=== PATIENT | female | born 1970 | race Caucasian/White ===

== ENCOUNTER 2018-08-03 10:37 | Emergency (ER) | payer BC ==
[2018-08-03 10:50] VITALS: BP 111/72
--- NOTE | 2018-08-03 10:54 | UC ---
Back Pain HPI - HPI Summary HPI Summary: 48 yo female presents with right sided low back pain. She tells me that about 1 week ago she woke up and noticed pain to her right lower back. She had trouble getting out of bed and needed the assistance of her daughter. She denies known injury. She has been taking tylenol and ibuprofen with no relief. She had one instant of urinary incontinence and notes that she has been having more bowel movements lately, but no loss of bowel control. She also notes that her right leg feels weak and has felt that it is going to "give out". She denies numbness , tingling, or radiation of pain. No fever, chills, abdominal pain, n/v, or dysuria. She says that she has a history of minor low back problems and had an MRI about 8 years ago that showed a mild bulging disk. - History of Current Complaint Chief Complaint: UCBackPain Stated Complaint: BACK PAIN Time Seen by Provider: 08/03/18 10:53 Hx Obtained From: Patient Hx Last Menstrual Period: iud Onset/Duration: Sudden Onset Timing: Constant Severity Initially: Moderate Severity Currently: Moderate Pain Intensity: 5 Pain Scale Used: 0-10 Numeric - Allergies/Home Medications Allergies/Adverse Reactions: Allergies Allergy/AdvReac Type Severity Reaction Status Date / Time scopolamine Allergy See Comment Verified 08/03/18 10:51 Home Medications: Home Medications Acetaminophen [APAP] 650 mg PO 08/03/18 [History] Ibuprofen 800 mg PO 08/03/18 [History] PMH/Surg Hx/FS Hx/Imm Hx - Additional Past Medical History Additional PMH: None - Surgical History Surgical History: Yes Surgery Procedure, Year, and Place: [place] [facility] [place] [facility] [place] - Family History Known Family History: Positive: None - Social History Occupation: Employed Full-time Lives: With Family Alcohol Use: Occasionally Alcohol Amount: 10 WINE OR BEER PER MONTH Substance Use Type: None Smoking Status (MU): Former Smoker Type: Cigarettes Amount Used/How Often: 1/2 PPD FOR 30 YEARS Length of Time of Smoking/Using Tobacco: 20 years Have You Smoked in the Last Year: Yes Household Exposure Type: Cigarettes Review of Systems All Other Systems Reviewed And Are Negative: Yes Constitutional: Positive: Negative Skin: Positive: Negative Respiratory: Positive: Negative Cardiovascular: Positive: Negative Gastrointestinal: Positive: Negative Genitourinary: Positive: Negative Neurovascular: Positive: Negative Musculoskeletal: Positive: Other: - Right low back pain Neurological: Positive: Weakness - right leg Psychological: Positive: Negative Physical Exam - Summary Physical Exam Summary: GENERAL: NAD. WDWN. No pain distress. SKIN: No rashes, sores, lesions, or open wounds. NECK: Supple. FROM. Nontender. No lymphadenopathy. CHEST: CTAB. No r/r/w. No accessory muscle use. Breathing comfortably and in no distress. CV: RRR. Without m/r/g. Pulses intact. Cap refill <2seconds MSK: NTTP over lumbar paraspinal muscles or lumbar vetebrae. Pain with flexion and extension of spine. Positive SLR on right for low back pain without radiation. Strength 5/5 B/L LEs including dorsiflexion and plantar flexion. FROM B/L LEs. No edema. NEURO: Alert. Sensations intact B/L LEs L3-S1, but feel decreased on right compared to left. PSYCH: Age appropriate behavior. Triage Information Reviewed: Yes Vital Signs: Initial Vital Signs Temp 97.4 F 08/03/18 10:44 Pulse 69 08/03/18 10:44 Resp 18 08/03/18 10:44 BP 111/72 08/03/18 10:44 Pulse Ox 99 08/03/18 10:44 Laboratory Tests 08/03/18 11:20 POC Urine Color Yellow POC Urine Clarity Clear POC Urine pH 5.0 POC Ur Specif Dellrose 1.025 POC Urine Protein Negative POC Ur Glucose (UA) Negative POC Urine Ketones Negative POC Urine Blood Negative POC Urine Nitrite Negative POC Urine Bilirubin Negative POC Urine Urobilinogen 0.2 POC U Leukocyte Esteras Negative Vital Signs Reviewed: Yes Back Pain Course/Dx - Course Course Of Treatment: CT lumbar spine: IMPRESSION: MILD DEGENERATIVE DISC DISEASE, WITHOUT OSSEOUS NEURAL FORAMINAL NARROWING OR CENTRAL. CANAL STENOSIS. We discussed the importance of rectal tone and the important clinical information a rectal exam would provide, but pt declined exam. She is having no numbness or paresthesias and her strength is intact. Will treat her pain as sciatica and have her f/u with her PCP or neurosurgery for further evaluation and possible PT/MRI of her lower back. Advised that if she develops numbness, tingling, or loss of bowel/bladder control to go to the ED. - Differential Dx/Diagnosis Provider Diagnosis: Low back pain, Sciatica Discharge - Sign-Out/Discharge Documenting (check all that apply): Patient Departure All imaging exams completed and their final reports reviewed: Yes - Discharge Plan Condition: Stable Disposition: HOME Prescriptions: Cyclobenzaprine TAB* [Flexeril 10 MG TAB*] 10 mg PO BID PRN #20 tab PRN Reason: Pain predniSONE TAB* [Deltasone 20 MG TAB*] 60 mg PO DAILY #18 tab Patient Education Materials: Sciatica (ED) Referrals: Miriam Childers MD [Primary Care Provider] - As Soon As Possible Belen Hernandez MD [Medical Doctor] - As Soon As Possible [facility] [Provider Group] - As Soon As Possible Additional Instructions: If you develop a fever, shortness of breath, chest pain, new or worsening symptoms - please call your PCP or go to the ED. 1) If you develop numbness, tingling, or decreased sensation/function of your leg or groin area - please go to the ER immediately - Billing Disposition and Condition Condition: STABLE Disposition: Home
== END 2018-08-03 12:00 | disposition home or self-care (01) ==
LOC: UCEAST 10:37
DX: M54.41 Lumbago with sciatica, right side (principal); F17.210 Nicotine dependence, cigarettes, uncomplicated; R32 Unspecified urinary incontinence; R53.1 Weakness
CPT/HCPCS: 72131; 81003; 99212; G0463

== ENCOUNTER 2019-03-16 11:20 | Emergency (ER) | payer BC ==
--- OUTSIDE RECORDS SUMMARY | 2019-03-16 11:26 | XMS REPORT ---
:1970 Author Organization [facility] Address [address] [place] [address] Care Team Providers Name Role Phone Arabella Robles Unavailable Unavailable PROBLEMS Type Condition ICD9-CM Code [id number] Code Onset Condition SNOMED Code Dates Status Problem Acute vaginitis N76.0 Active 94805914 Problem Excessive and N92.0 Active 864596182 frequent menstruation with regular cycle Problem Dysplasia of N90.3 Active 716922218 vulva, unspecified Problem Family history of Z80.3 Active 076317114 malignant neoplasm of breast ALLERGIES No Information ENCOUNTERS Encounter Location Date Diagnosis [facility] [address] Mar, OBGYN [place] [id number] [facility] [address] Mar, [place] [id number] [facility] 103 Jan, [place] [id number] [facility] [address] Jan, OBGYN [place] [id number] [facility] [address] Jan, Dysplasia of vulva, OBGYN [facility], unspecified N90.3 ; [place] [id number] Excessive and frequent menstruation with regular cycle N92.0 and Other specified noninflammatory disorders of vagina N89.[address] [facility] 103 Jul, [place] [id number] [place] [facility] 103 Jul, [facility] unspecified N90.3 and [place] [id number] Excessive and frequent menstruation with regular cycle N92.0 [place] [facility] 103 Jun, [place] [id number] [place] [facility] 103 Jun, [place] [id number] [place] [facility] [address] May, [place] [id number] [place] [facility] [address] [place] [address] [place] May, Acute vaginitis N76.0 ; [address] [place], Dysplasia of vulva, [place] [id number] unspecified N90.3 ; Family history of malignant neoplasm of breast Z80.3 ; Encounter for other contraceptive management Z30.8 ; Excessive and frequent menstruation with regular cycle N92.0 and Anal spasm K59.4 [place] [facility] 103 Feb, [place] [id number] [place] [facility] 103 Feb, [place] [id number] [place] [facility] [address] [place] Feb, Dysplasia of vulva, [address] [place] [address], unspecified N90.3 ; Family [place] [id number] history of malignant neoplasm of breast Z80.3 ; Encounter for other contraceptive management Z30.8 and Acute vaginitis N76.0 [place] [facility] [address] [place] Jan, Dysplasia of vulva, [address] [place], unspecified N90.3 and [place] [id number] Family history of malignant neoplasm of breast Z80.3 [place] [facility] [address] [place] Dec, Dysplasia of vulva, [address] [place], unspecified N90.3 ; Family [place] [id number] history of malignant neoplasm of breast Z80.3 and Vaginitis, vulvitis and vulvovaginitis in diseases classified elsewhere N77.[address] Nov, Dysplasia of vulva, [facility] [address] [place], unspecified N90.3 [place] [id number] IMMUNIZATIONS No Known Immunizations SOCIAL HISTORY Never Assessed REASON FOR REFERRAL FUNCTIONAL STATUS PLAN OF CARE VITAL SIGNS MEDICATIONS Unknown Medications PROCEDURES No Known procedures RESULTS No Results REASON FOR VISIT [facility] Insurance [facility] Health Member Patient Patient Patient Patient Patient Subscriber Subscriber Subscriber Group Insurance Plan Plan Plan Plan ID Relationship Address Phone Name Date of ID Name Date of No Type Insurance Insurance Insurance Coverage to Subscriber Address Phone Name Dates Blue Cross [phone] Blue Cross self Kitty [id number] Blue [id number] 89 Blue a Beyea Shield [place] [facility] [address] MEDICAL (GENERAL) HISTORY Type Description Date Medical History BRADLY Surgical History appendectomy Surgical History C section 1999 Surgical History plantar faciitis- Right 2016 Surgical History Right index finger- repair 2017 Hospitalization History 1999 Hospitalization History childbirth 2001
--- OUTSIDE RECORDS SUMMARY | 2019-03-16 11:26 | XMS REPORT ---
:1970 Author Organization [facility] Address [address] [place] [address] Care Team Providers Name Role Phone Arabella Robles Unavailable Unavailable PROBLEMS Type Condition ICD9-CM Code [id number] Code Onset Condition SNOMED Code Dates Status Problem Acute vaginitis N76.0 Active 64709190 Problem Excessive and N92.0 Active 949484885 frequent menstruation with regular cycle Problem Dysplasia of N90.3 Active 077443589 vulva, unspecified Problem Family history of Z80.3 Active 731899381 malignant neoplasm of breast ALLERGIES No Information ENCOUNTERS Encounter Location Date Diagnosis [facility] [address] Mar, O[place] [id number] [facility] [address] Mar, [place] [id number] [facility] Jan, [place] [id number] [facility] 103 Jan, [place], [place] [id number] [facility] [address] Jan, Dysplasia of vulva, O[facility], unspecified N90.3 ; [place] [id number] Excessive and frequent menstruation with regular cycle N92.0 and Other specified noninflammatory disorders of vagina N89.8 [facility] 103 Jul, [place] [id number] [place] [facility] [address] Jul, [facility], [facility] unspecified N90.3 and [place] [id number] Excessive and frequent menstruation with regular cycle N92.0 [place] [facility] 103 Jun, [place] [id number] [place] [facility] 103 Jun, [place] [id number] [place] [facility] 103 May, [place] [id number] [place] [facility] [address] [place] [address] [place] May, Acute vaginitis N76.0 ; [address] [place], Dysplasia of vulva, [place] [id number] unspecified N90.3 ; Family history of malignant neoplasm of breast Z80.3 ; Encounter for other contraceptive management Z30.8 ; Excessive and frequent menstruation with regular cycle N92.0 and Anal spasm K59.4 [place] [facility] [address] Feb, [place] [id number] [place] [facility] [address] Feb, [place] [address] [place] [facility] [address] [place] Feb, Dysplasia of vulva, [address] [place] [address], unspecified N90.3 ; Family [place] [id number] history of malignant neoplasm of breast Z80.3 ; Encounter for other contraceptive management Z30.8 and Acute vaginitis N76.0 [place] [facility] [address] [place] Jan, Dysplasia of vulva, [address] [place], unspecified N90.3 and [place] [id number] Family history of malignant neoplasm of breast Z80.3 [place] [facility] [address] [place] Dec, Dysplasia of vulva, [address] [place], unspecified N90.3 ; Family [place] [id number] history of malignant neoplasm of breast Z80.3 and Vaginitis, vulvitis and vulvovaginitis in diseases classified elsewhere N77.[address] Nov, Dysplasia of vulva, [facility] [address] [place], unspecified N90.3 [place] [id number] IMMUNIZATIONS No Known Immunizations SOCIAL HISTORY Never Assessed REASON FOR REFERRAL FUNCTIONAL STATUS PLAN OF CARE VITAL SIGNS MEDICATIONS Medication Instructions Dosage Frequency Start End Date Duration Status Date Mirena 52 mg by intrauterine 1 ea Active administration once Flagyl 500 mg orally BID 1 tab(s) 12h Jan, 7 day(s) Active 2019 MetroGel-Vagina intravaginally 1 appful Jan, 5 day(s) Active l 0.75% once a day (at 2018 bedtime) PROCEDURES No Known procedures RESULTS No Results REASON FOR VISIT Pt script. Insurance Providers [facility] Health Member Patient Patient Patient Patient Patient Subscriber Subscriber Subscriber Group Insurance Plan Plan Plan Plan ID Relationship Address Phone Name Date of ID Name Date of No Type Insurance Insurance Insurance Coverage to Subscriber Address Phone Name Dates Blue Cross [phone] Blue Cross self Kitty [id number] Blue [id number] 89 Blue a Beyea 8 Shield [place] [facility] [address] [address] MEDICAL (GENERAL) HISTORY Type Description Date Medical History BRADLY Surgical History appendectomy Surgical History C section 1999 Surgical History plantar faciitis- Right 2016 Surgical History Right index finger- repair 2017 Hospitalization History 1999 Hospitalization History childbirth 2001
--- OUTSIDE RECORDS SUMMARY | 2019-03-16 11:26 | XMS REPORT ---
:1970 Author Organization [facility] Address [address] [place] [address] Care Team Providers Name Role Phone Arabella Robles Unavailable Unavailable PROBLEMS Type Condition ICD9-CM Code [id number] Code Onset Condition SNOMED Code Dates Status Problem Acute vaginitis N76.0 Active 87826613 Problem Excessive and N92.0 Active 664248723 frequent menstruation with regular cycle Problem Dysplasia of N90.3 Active 201764021 vulva, unspecified Problem Family history of Z80.3 Active 631418691 malignant neoplasm of breast ALLERGIES No Information ENCOUNTERS Encounter Location Date Diagnosis [facility] [address] Mar, [place], [place] [id number] [facility] Mar, [place] [id number] [facility] 103 Jan, [place] [id number] [facility] [address] Jan, [place] [id number] [facility] [address] Jan, Dysplasia of vulva, O[facility], unspecified N90.3 ; [place] [id number] Excessive and frequent menstruation with regular cycle N92.0 and Other specified noninflammatory disorders of vagina N89.8 [facility] 103 Jul, [place] [address] [place] [facility] 103 Jul, [facility]plasia of vulva, [facility], unspecified N90.3 and [place] [id number] Excessive and frequent menstruation with regular cycle N92.0 [place] [facility] 103 Jun, [place] [address] [place] [facility] 103 Jun, [place] [id number] [facility] [facility] 103 May, [place] [address] [place] [facility] [address] [place] [address] [place] May, Acute vaginitis N76.0 ; [address] [place], Dysplasia of vulva, [place] [id number] unspecified N90.3 ; Family history of malignant neoplasm of breast Z80.3 ; Encounter for other contraceptive management Z30.8 ; Excessive and frequent menstruation with regular cycle N92.0 and Anal spasm K59.4 [place] [facility] 103 Feb, [place] [id number] [place] [facility] 103 Feb, [place] [address] [place] [facility] [address] [place] Feb, Dysplasia of vulva, O[address] [place] [address], unspecified N90.3 ; Family [place] [id number] history of malignant neoplasm of breast Z80.3 ; Encounter for other contraceptive management Z30.8 and Acute vaginitis N76.0 [place] [facility] [address] [place] Jan, Dysplasia of vulva, O[address] [place], unspecified N90.3 and [place] [id number] Family history of malignant neoplasm of breast Z80.3 [place] [facility] [address] [place] Dec, Dysplasia of vulva, O[address] [place], unspecified N90.3 ; Family [place] [id number] history of malignant neoplasm of breast Z80.3 and Vaginitis, vulvitis and vulvovaginitis in diseases classified elsewhere N77.[address] Nov, Dysplasia of vulva, [facility] [address] [place], unspecified N90.3 [place] [id number] IMMUNIZATIONS No Known Immunizations SOCIAL HISTORY Never Assessed REASON FOR REFERRAL FUNCTIONAL STATUS PLAN OF CARE VITAL SIGNS MEDICATIONS Medication Instructions Dosage Frequency Start End Date Duration Status Date MetroGel-Vagina intravaginally 1 appful Jan, day(s) Active l 0.75% once a day (at 2018 bedtime) Mirena 52 mg by intrauterine 1 ea Active administration once PROCEDURES No Known procedures RESULTS No Results REASON FOR VISIT Insurance Providers [facility] Health Member Patient Patient Patient Patient Patient Subscriber Subscriber Subscriber Group Insurance Plan Plan Plan Plan ID Relationship Address Phone Name Date of ID Name Date of No Type Insurance Insurance Insurance Coverage to Subscriber Address Phone Name Dates Blue Cross [phone] Blue Cross self Kitty [id number] [place] [id number] 89 Blue a Beyea Shield [facility] [address] MEDICAL (GENERAL) HISTORY Type Description Date Medical History BRADLY Surgical History appendectomy Surgical History C section 1999 Surgical History plantar faciitis- Right 2016 Surgical History Right index finger- repair 2017 Hospitalization History 2000 Hospitalization History childbirth 2002
--- OUTSIDE RECORDS SUMMARY | 2019-03-16 11:26 | XMS REPORT ---
:1970 Author Organization [facility] Address [address] [place] [address] Care Team Providers Name Role Phone Arabella Robles Unavailable Unavailable PROBLEMS Type Condition ICD9-CM Code [id number] Code Onset Condition SNOMED Code Dates Status Problem Acute vaginitis N76.0 Active 73909416 Problem Excessive and N92.0 Active 483617660 frequent menstruation with regular cycle Problem Dysplasia of N90.3 Active 651639870 vulva, unspecified Problem Family history of Z80.3 Active 525192348 malignant neoplasm of breast ALLERGIES No Information ENCOUNTERS Encounter Location Date Diagnosis [facility] [address] Mar, OBGYN [place], [place] [id number] [facility] 103 Mar, [place] [id number] [facility] 103 Feb, [place] [address] [facility] 103 Jan, [place] [id number] [facility] [address] Jan, [place] [id number] [facility] [address] Jan, Dysplasia of vulva, OBGYN [facility], unspecified N90.3 ; [place] [address] Excessive and frequent menstruation with regular cycle N92.0 and Other specified noninflammatory disorders of vagina N89.8 [place] [facility] 103 Jul, OBGYN [place], [place] [address] [place] [facility] 103 Jul, Dysplasia of vulva, OBGYN [facility], unspecified N90.3 and [place] [id number] Excessive and frequent menstruation with regular cycle N92.0 [place] [facility] 103 Jun, [place] [address] [facility] 103 Jun, [place] [address] [place] [facility] 103 May, [place] [address] [facility] May, Acute vaginitis N76.0 ; [facility] [address] [place], Dysplasia of vulva, [place] [address] unspecified N90.3 ; Family history of malignant neoplasm of breast Z80.3 ; Encounter for other contraceptive management Z30.8 ; Excessive and frequent menstruation with regular cycle N92.0 and Anal spasm K59.4 [place] [facility] 103 17 Feb, 2018 [place] [address] [place] [facility] 103 Feb, [place] [address] [facility] Feb, Dysplasia of vulva, [facility] [address] [place], unspecified N90.3 ; Family [place] [id number] history of malignant neoplasm of breast Z80.3 ; Encounter for other contraceptive management Z30.8 and Acute vaginitis N76.[address] [place] [address] Jan, Dysplasia of vulva, [facility] [address] [place], unspecified N90.3 and [place] [id number] Family history of malignant neoplasm of breast Z80.[address] [facility] [address] Dec, Dysplasia of vulva, O[address] [place], unspecified N90.3 ; Family [place] [id number] history of malignant neoplasm of breast Z80.3 and Vaginitis, vulvitis and vulvovaginitis in diseases classified elsewhere N77.[address] Nov, Dysplasia of vulva, O[address] [place], unspecified N90.3 [place] [id number] IMMUNIZATIONS No Known Immunizations SOCIAL HISTORY Never Assessed REASON FOR REFERRAL FUNCTIONAL STATUS PLAN OF CARE VITAL SIGNS MEDICATIONS Medication Instructions Dosage Frequency Start End Date Duration Status Date MetroGel-Vagin intravaginally 1 appful Jan, 5 day(s) Active al 0.75% once a day (at 2019 bedtime) Flagyl 500 mg orally BID 1 tab(s) 12h Jan, 7 day(s) Active 2019 Diflucan 150 orally once 1 tab(s) 17 Feb, 1 dose(s) Active mg 2018 Mirena 52 mg by intrauterine 1 ea Active administration once PROCEDURES No Known procedures RESULTS No Results REASON FOR VISIT pt script Insurance Providers [facility] Health Member Patient Patient Patient Patient Patient Subscriber Subscriber Subscriber Group Insurance Plan Plan Plan Plan ID Relationship Address Phone Name Date of ID Name Date of No Type Insurance Insurance Insurance Coverage to Subscriber Address Phone Name Dates Blue Cross [phone] Blue Cross self Kitty [id number] [place] [id number] 89 Blue a [place]ye[place] [address] [place] [address] MEDICAL (GENERAL) HISTORY Type Description Date Medical History BRADLY Surgical History appendectomy Surgical History C section 1999 Surgical History plantar faciitis- Right 2016 Surgical History Right index finger- repair 2017 Hospitalization History 1999 Hospitalization History childbirth 2001
[2019-03-16 11:38] VITALS: BP 116/83
--- NOTE | 2019-03-16 11:53 | UC ---
Throat Pain/Nasal Enrique HPI - HPI Summary HPI Summary: 49-year-old female comes in with a chief complaint of upper respiratory tract infection symptoms with sore throat for 1 week. She's used some Cepacol lozenges which helped some with the pain. She's also been taken ibuprofen but she does have GERD and that upsets her stomach. She is has minimal rhinorrhea. She has bilateral ear pressure. Throat hurts worse when she swallows. Started with a fever yesterday. Feels like she is getting worse rather than better. No wheezing. She is a former smoker she quit in June 2018. - History of Current Complaint Chief Complaint: UCGeneralIllness Stated Complaint: SORE THROAT Time Seen by Provider: 03/16/19 11:42 Hx Last Menstrual Period: IUD Pain Intensity: 4 - Allergies/Home Medications Allergies/Adverse Reactions: Allergies Allergy/AdvReac Type Severity Reaction Status Date / Time scopolamine Allergy See Comment Verified 08/03/18 10:51 PMH/Surg Hx/FS Hx/Imm Hx Previously Healthy: Yes GI/ History: Gastroesophageal Reflux - Surgical History Surgical History: Yes Surgery Procedure, Year, and Place: 1997 APPEN[place]CTOM[place], [facility] [place] , [facility] [place]. 12/16/2015 [facility] - Family History Known Family History: Positive: None Family History: NON CONTRIBUTORY - Social History Alcohol Use: Occasionally Alcohol Amount: 10 WINE OR BEER PER MONTH Substance Use Type: None Smoking Status (MU): Former Smoker Type: Cigarettes Amount Used/How Often: 1/2 PPD FOR 30 YEARS Length of Time of Smoking/Using Tobacco: 20 years Have You Smoked in the Last Year: Yes Household Exposure Type: Cigarettes Review of Systems All Other Systems Reviewed And Are Negative: Yes Constitutional: Positive: Fever, Other - SEE HPI Skin: Positive: Negative Eyes: Positive: Negative ENT: Positive: Sore Throat, Ear Ache, Nasal Discharge Respiratory: Positive: Negative Cardiovascular: Positive: Negative Gastrointestinal: Positive: Negative Motor: Positive: Negative Neurovascular: Positive: Negative Musculoskeletal: Positive: Negative Neurological: Positive: Headache Psychological: Positive: Negative Is Patient Immunocompromised?: No Physical Exam Triage Information Reviewed: Yes Appearance: No Pain Distress, Well-Nourished, Ill-Appearing - MILD Vital Signs: Initial Vital Signs Temp 99.2 F 03/16/19 11:33 Pulse 66 03/16/19 11:33 Resp 16 03/16/19 11:33 BP 116/83 03/16/19 11:33 Pulse Ox 100 03/16/19 11:33 Vital Signs Reviewed: Yes Eye Exam: Normal Eyes: Positive: Conjunctiva Clear ENT: Positive: Pharyngeal erythema, Nasal congestion, Nasal drainage, TMs normal Neck: Positive: Supple Respiratory: Positive: Lungs clear, Normal breath sounds, No respiratory distress Cardiovascular: Positive: RRR Musculoskeletal: Positive: Strength Intact, ROM Intact Neurological: Positive: Alert, Muscle Tone Normal Psychological: Positive: Age Appropriate Behavior Skin Exam: Normal Throat Pain/Nasal Course/Dx - Course Course Of Treatment: DISCUSSED VIRAL VERSES BACTERIAL INFECTIONS AND THE ROLE OF ANTIBIOTICS. THE PATIENT PREFERS TO BE ON ANTIBIOTICS AT THIS TIME. - Differential Dx/Diagnosis Provider Diagnosis: Upper respiratory infection, Pharyngitis Discharge ED - Sign-Out/Discharge Documenting (check all that apply): Patient Departure All imaging exams completed and their final reports reviewed: No Studies - Discharge Plan Condition: Stable Disposition: HOME Prescriptions: Amoxicillin PO (*) [Amoxicillin 875 MG (*)] 875 mg PO BID #20 tab Patient Education Materials: Pharyngitis (ED), Upper Respiratory Infection (ED) Referrals: [facility] [place] [Outside] Additional Instructions: FOLLOW UP WITH YOUR DOCTOR IF NOT COMPLETELY IMPROVED. GET RECHECKED SOONER IF YOUR CONDITION WORSENS OR ANY QUESTIONS OR CONCERNS. - Billing Disposition and Condition Condition: STABLE Disposition: Home
== END 2019-03-16 11:59 | disposition home or self-care (01) ==
LOC: UCEAST 11:20
DX: J02.9 Acute pharyngitis, unspecified (principal); K21.9 Gastro-esophageal reflux disease without esophagitis; Z87.891 Personal history of nicotine dependence; Z88.8 Allergy status to other drugs, medicaments and biological substances
CPT/HCPCS: 99211; G0463

== ENCOUNTER 2019-06-01 09:39 | Emergency (ER) | payer BC ==
--- OUTSIDE RECORDS SUMMARY | 2019-06-01 09:48 | XMS REPORT | Summary of Care ---
:1970 Author Organization [facility] Address [address] [address] Care Team Providers Name Role Phone Shawna Brian MD Primary Care Provider Reason for Visit Reason Comments Knee Pain right Encounter Details Date Type Department Care Team Description 05/27/2019 Office Visit [facility] - Pebbles Malone, Acute medial meniscus [place] [facility] tear of right knee, Therapy [address] subsequent encounter [address] [place] [address] (Primary Dx) [address] [phone] [place] [id number] [phone] Allergies Active Allergy Reactions Severity Noted Date Comments Varenicline Other 07/04/2014 Nightmares Scopolamine 07/18/2007 documented as of this encounter (statuses as of 05/27/2019) Medications Medication Sig Dispensed Refills Start Date End Date Status Levonorgestrel by Intrauterine 0 Active (MIRENA, 52 MG,) 20 route. Placed MCG/24HR Intrauterine 12/25/15 IUD acetaminophen Take 1 Tab by mouth 36 Tab 0 04/14/2017 Active (TYLENOL) 650 MG Oral EVERY SIX HOURS. Tab CR ibuprofen (MOTRIN) Take 1 Tab by mouth 36 Tab 0 04/14/2017 Active 800 MG Oral Tab EVERY SIX HOURS NEEDED for Pain. metroNIDAZOLE insert 1 applicator 0 08/28/2017 Active (METROGEL VAGINAL) per vagina two 0.75 % Vaginal Gel times of week for suppressive therapy documented as of this encounter (statuses as of 05/27/2019) Active Problems Problem Noted Date Pain of right upper extremity 03/17/2017 Overview: Added automatically from request for surgery [id number] IUD (intrauterine device) in place 03/02/2016 Overview: mirena - December 18 BMI 33.0-33.9,adult 03/02/2016 Left wrist pain 03/13/2015 Impingement syndrome of right shoulder 03/13/2015 Ganglion of left wrist 03/13/2015 Shoulder pain, right 10/23/2014 Smoking 07/04/2014 Overview: Care plan done 06/19 Depressive disorder, not elsewhere classified 12/04/2006 Acute sinusitis, unspecified 10/18/2006 Tobacco use disorder 10/18/2006 Irritable bowel syndrome 10/18/2006 Abnormal glandular Papanicolaou smear of cervix 06/29/2006 documented as of this encounter (statuses as of 05/27/2019) Immunizations Name Administration Dates Next Due Influenza (IM) Preservative Free 05/30/2017, 03/02/2016, 03/26/2015 Influenza (IM) W/Pres 07/04/2014 TDAP Vaccine 07/04/2014 documented as of this encounter Social History Tobacco Use Types Packs/Day Years Used Date Current Every Day Smoker Cigarettes 0.5 20 Smokeless Tobacco: Never Used Alcohol Use Drinks/Week oz/Week Comments Yes 10 Standard drinks or equivalent 8.3 very rare Sex Assigned at Date Recorded Not on file Job Start Date Occupation Industry Not on file Not on file Not on file Travel History Travel Start Travel End No recent travel history available. documented as of this encounter Last Filed Vital Signs Not on filedocumented in this encounter Progress Notes Pebbles Malone, PT - 05/27/2019 2:30 PM EST [facility] Treatment Note Outpatient Physical Therapy Services [facility] [address] [place] [phone] Treatment Number: 5 Referring Physician: Lizabeth Perez Primary Diagnosis: ICD-9-CM ICD-10-CM 1. Acute medial meniscus tear of right knee, subsequent encounter V58.89 S83.241D 836.0 Plan of Care Expiration Date: Time In: 234 Time Out: 304 Total Session Minutes: 30 Pain at Start of Care: 0/10 Pain at End of Care: 0/10 Subjective Comments: Doing better, still pain with twisting/pivoting. Interventions: Therapeutic Exercises (44149) Patient Education/Home Exercise Program: see exercises below Number of Exercises?: 8 Total Minutes (all Therapeutic Exercise): 25 Exercise #1 Exercise Name: Side lying clams with blue band Reason for Exercise: Muscle Performance Location/Body Area: Hip Sets/Reps: 15x Exercise #2 Exercise Name: Hamstring stretch with strap Reason for Exercise: Flexibility Location/Body Area: Ankle Sets/Reps: 60 sec Exercise #3 Exercise Name: SLS on airex Reason for Exercise: Balance Location/Body Area: Knee Sets/Reps: 3 x 30 sec Exercise #4 Exercise Name: bridge with blue band Reason for Exercise: Muscle Performance Location/Body Area: Knee Sets/Reps: 15x Exercise #5 Exercise Name: Bridge on SB Reason for Exercise: Strengthening Location/Body Area: Knee Sets/Reps: 15 Exercise #6 Exercise Name: Side stepping with resistance Reason for Exercise: Strengthening Location/Body Area: Hip Sets/Reps: 3 laps blue Exercise #7 Exercise Name: step ups Reason for Exercise: Strengthening Location/Body Area: Knee Sets/Reps: 15x 4" Manual Therapy (81289) Taping: kinesiotape Taping Details: Y strip and I strip Modalities Modalities Needed?: Ultrasound Ultrasound (10667) Reason for Use: promote healing, cavitation Body Area: medial knee joint Frequency: 1.0 MHz Frequency Description: Pulsed 50% Intensity: .5wcm2 Total Minutes: 5 minutes Assessment: Patient demonstrates mild pain at first with lateral step ups which became pain free, otherwise progressing well. Patient also reports ongoing difficulty in lateral and pivoting movements. Skilled Physical Therapy services are required to address ongoing functional and objective limitations/ impairments including decreased R LE stability, short hamstrings. Plan for Next Visit: Progress quad and glute strengthening Total UNTIMED Code Treatment Minutes: Total TIMED Code Treatment Minutes: 30 Total Treatment Minutes: 30 Author: Pebbles Malone PT 05/27/2019 14:59 documented in this encounter Plan of Treatment Date Type Specialty Care Team Description 06/03/2019 Office Visit Physical Therapy Pebbles Malone, PT [address] [place] [address] [phone] 08/27/2019 Office Visit Orthopedics Mccracken, Lizabeth L, [facility]CHE[facility]-C [address] [place] [address] [phone] Health Maintenance Due Date Last Done Comments PNEUMOCOCCAL 0-64 YRS (1 of 1977 1 - PPSV23) DEPRESSION SCREENING 1983 DIABETES SCREENING 10/11/2017 10/11/2016, 07/04/2014 INFLUENZA VACCINE (#1) 2019 05/30/2017, 03/02/2016, 03/26/2015, Additional history exists PAP SMEAR 03/02/2019 03/02/2016, 03/02/2016, 07/04/2014, Additional history exists LIPID DISORDER SCREENING 06/03/2022 06/03/2017, 07/04/2014, 04/06/2011, Additional history exists DTaP/Tdap/Td Vaccines (2 - 07/04/2024 07/04/2014 Tdap) HEPATITIS A IMMUNIZATION Aged Out No longer eligible SERIES based on patient's age to complete this topic HPV IMMUNIZATION SERIES Aged Out No longer eligible based on patient's age to complete this topic MENINGOCOCCAL VACCINE IMM Aged Out No longer eligible based on patient's age to complete this topic documented as of this encounter Goals Goal Patient Goal Associated Recent Patient-Stated? Author Type Problems Progress Depression Depression No sana Childers (PHQ-9) MD Miriam total score < 5 Note: This is an individualized treatment (depression) goal for Sagrario Buckley: Displayed above is your goal for a depression screening (PHQ-9) score that would indicate good control of your depression. Lifestyle - Current Smoker Lifestyle Tobacco use disorder No Miriam Childers MD Note: Smoking Cessation Plan Discussed smoking cessation with patient. Patient readiness to quit:yes Discussed smoking cessation plan according to AHRQ guidelines:counseled patient on the risks of tobacco use, advised patient to quit and offered support , discussed current use pattern, discussed possibl e barriers (withdrawal symptoms, weight gain, fear of failure, etc.), advised regarding importance of setting quit date and discussed use of medication: Bupropion SR My Quit Plan: My quit date is set for Patient will consider Notify my friends, family, and co-workers about decision to quit. Will ask for their support and understanding Remove tobacco products from my environment. I will ask people not to smoke around me or in my home. I will anticipate challenges at the beginning and will try not to be discouraged. To remember the benefits of quitting such as improved health, feeling better about myself, saving money, etc. Reducing stressors and avoiding triggers are essential keys to my success Finding ways to distract myself when I have the urge to smoke such as taking a walk, reading, playing a board game, putting together a puzzle, etc. Taking medications as my healthcare provider has advised to help alleviate the urge to smoke. If I am unable to take the medication, I will discuss further with my healthcare provider. Recognize reasons for relapse in my past attempts. What did and did not work for me Consider connecting with group, individual, or telephone counseling Keep a regular sleep schedule Lifestyle Miriam Medeiros MD Note: This is an individualized lifestyle goal for Sagrario Buckley: Please maintain a regular sleep schedule. This may help with some symptoms of depression. Take all prescribed medications as directed Self-management Miriam Medeiros MD Note: This is an individualized self-management goal for Sagrario Ely Buckley: Please take all prescribed medications as directed. 1. Do not skip doses. If you cannot afford your medications, talk with your doctor. 2. Use a pill reminder system such as a pill box if needed. Your pharmacist can help you with this. 3. Contact your Pharmacy 5 days before your medication runs out. If you cannot take your medications for any reasons, talk with your doctor. 4. Please bring all of your medication bottles and inhalers (or a list of all your medications/inhalers) with you to every visit. Potential barriers to meeting all of your care plan goals will continue to be addressed on an ongoing basis. documented as of this encounter Implants Implanted Type Area Manager Managing Device Shelf Model / Identifier Expiration Serial / Lot Date Hand/Wrist Internal Brace Ligament Augmentation Repair Right: ARTHREX [id number] / Implanted: Qty: 1 on 04/14/2017 by Delilah Dash MD at [facility] Hand / [id number] documented as of this encounter Results Not on filedocumented in this encounter Visit Diagnoses Diagnosis Acute medial meniscus tear of right knee, subsequent encounter documented in this encounter Insurance Payer Benefit Plan / Subscriber ID Effective Dates Phone Address Type Group [employer] EVELYN BCBS xxxxxxxxxxxx 2016-Present [employer] Guarantor Name Account Type Relation to Date of Phone Billing Patient Address WaynegtSagrario A Personal/Family 1970 [phone] [address] (Home) [phone] [place], [place] (Work) [id number] documented as of this encounter
--- OUTSIDE RECORDS SUMMARY | 2019-06-01 09:48 | XMS REPORT | Summary of Care ---
:1970 Author Organization [facility] Address [address] [address] Care Team Providers Name Role Phone Shawna Brian MD Primary Care Provider Reason for Referral Refer to Department Only (Routine) Status Reason Specialty Diagnoses / Referred By Referred To Procedures Contact Contact Authorized Physical Therapy Diagnoses Acute medial meniscus tear of right knee, subsequent encounter Lizabeth Perez RPA-C Orthopaedics - [address] [place] [address] Physical [facility] Therapy [address] [place] [address] [address] Phone: [place], [place] [phone] Fax: Reason for Visit Reason Comments Follow Up MRI results of right knee. MRI in [facility] [place]. Encounter Details Date Type Department Care Team Description 04/11/2019 Office Visit [facility] - Lizabeth Perez, Acute medial meniscus [place] RPA-C tear of right knee, [address] [place] [address] subsequent encounter [address] (Primary Dx) [place] [address] [place] [address] [phone] Allergies Active Allergy Reactions Severity Noted Date Comments Varenicline Other 07/04/2014 Nightmares Scopolamine 07/18/2007 documented as of this encounter (statuses as of 04/11/2019) Medications Medication Sig Dispensed Refills Start Date [...] Gel times of week for suppressive therapy nicotine transdermal Place 1 Patch onto 14 Patch 0 07/02/2018 Active patch-daily skin DAILY. (NICODERM) 21 MG/24HR Transdermal PATCH 24 HRIndications: Smoking nicotine transdermal Place 1 Patch onto 30 Patch 0 07/05/2018 Active patch-daily (NICOTINE skin DAILY. STEP 2) 14 MG/24HR Transdermal PATCH 24 HR documented as of this encounter (statuses as of 04/11/2019) Active Problems Problem Noted Date Pain of right upper extremity 03/17/2017 Overview: Added automatically from request for surgery [id number] IUD (intrauterine device) in place 03/02/2016 Overview: [...] as of this encounter (statuses as of 04/11/2019) Immunizations Name Administration Dates Next Due Depo Medrol (80mg) 03/13/2015, 10/23/2014 Influenza (IM) Preservative Free 05/30/2017, 03/02/2016, 03/26/2015 [...] of this encounter Last Filed Vital Signs Vital Sign Reading Time Taken Comments Blood Pressure 91/64 04/11/2019 2:31 PM EST Pulse 83 04/11/2019 2:31 PM EST Temperature - - Respiratory Rate - - Oxygen Saturation - - Inhaled Oxygen Concentration - - Weight 95.3 kg (210 lb) 04/11/2019 2:31 PM EST Height 165.1 cm (5' 5") 04/11/2019 2:31 PM EST Body Mass Index 34.95 04/11/2019 2:31 PM EST documented in this encounter Progress Notes Lizabeth Perez RPA-C - 04/11/2019 3:30 PM EST Patient: Sagrario Buckley : 1970 Date of Service: 04/11/2019 Chief Complaint Patient presents with Follow Up MRI results of right knee. MRI in [facility] [place]. HPI: Sagrario Buckley is a 49-y.o. female who is here for follow up from a right knee MRI. The patient reports that she is mobilizing with pain rated as 6/ 10 in the knee. Denies fever, chills, constitutional symptoms. Pain is overall similar to last visit and without significant improvement. Physical Exam: Gait: Patient walks unassisted , normal gait. Knee: Range of motion of the right knee demonstrates extension 0, flexion 110 and quadriceps lag of 0. There is not crepitus throughout range of motion. There is pain at extremes of motion. Patienthas tenderness over the medial joint line, tenderness over medial collateral ligament. Neurological: Sensation is intact to the foot. Vascular: Pedal pulse is present. Pedal edema is absent. Skin condition to the foot is unremarkable and intact. Imaging: MRI: Medial meniscus tear, partial mcl tear and bakers cyst. Impression: ICD-9-CM ICD-10-CM 1. Acute medial meniscus tear of right knee, subsequent encounter V58.89 S83.241D REFER TO PHYSICAL THERAPY / REHAB 836.0 Plan: The diagnosis was discussed with the patient. Will refer to physical therapy. Recheck in 4 weeks . Author: STEPHANIE Sierra 04/11/2019 14:49 documented in this encounter Plan of Treatment Date Type Specialty Care Team Description 04/15/2019 Ancillary Procedure Radiology 04/15/2019 Office Visit Orthopedics Lizabeth Perez RPA-C [address] [facility] [place] [address] [phone] 04/24/2019 Office Visit Physical Therapy Pebbles Malone, PT [address] [place] [address] [phone] 05/21/2019 Office Visit Orthopedics Lizabeth Perez RPA-C [address] [facility] [place] [address] Name Type Priority Associated Diagnoses Order Schedule REFER TO PHYSICAL Referral Routine Acute medial meniscus 99 Occurrences starting THERAPY / REHAB tear of right knee, 04/11/2019 until subsequent encounter 04/11/2020 Health Maintenance Due Date Last Done Comments PNEUMOCOCCAL 0-64 YRS (1 of 1977 1 - PPSV23) DEPRESSION SCREENING 1983 DIABETES SCREENING 10/11/2017 10/11/2016, 07/04/2014 INFLUENZA VACCINE (#1) 2019 05/30/2017, 03/02/2016, 03/26/2015, Additional history exists PAP SMEAR 03/02/2019 03/02/2016, 03/02/2016, 07/04/2014, Additional history exists LIPID DISORDER SCREENING 06/03/2022 06/03/2017, 07/04/2014, 04/06/2011, Additional history exists HPV IMMUNIZATION SERIES Aged Out No longer eligible based on patient's age to complete this topic MENINGOCOCCAL VACCINE IMM Aged Out No longer eligible based on patient's age to complete this topic documented as of this encounter Goals Goal Patient Goal Associated Recent Patient-Stated? Author Type Problems Progress Depression Depression No [place], screen (PHQ-9) MD Miriam total score < 5 Note: This is an individualized treatment (depression) goal for Sagrario Buckley: Displayed above is your goal for a depression screening (PHQ-9) score that would indicate good control of your depression. Lifestyle - Current Smoker Lifestyle Tobacco use disorder Miriam Medeiros MD Note: Smoking Cessation Plan Discussed smoking [...] is an individualized self-management goal for Sagrario A Marcio: Please take all prescribed medications as directed. [...] of this encounter Implants Implanted Type Area Software Manager Device Shelf Model / Identifier Expiration Serial / Lot Date Hand/Wrist Internal Brace Ligament Augmentation Repair Right: AR[employer]REX [id number] / Implanted: Qty: 1 on 04/14/2017 by Delilah Dash MD at [facility] Hand / [id number] documented as of this encounter Results Not on filedocumented in this encounter Visit Diagnoses Diagnosis Acute medial meniscus tear of right knee, subsequent encounter - Primary documented in this encounter Insurance Payer Benefit Plan / Subscriber ID Effective Dates Phone Address Type Group [employer] xxxxxxxxxxxx 2016-Present [employer] Guarantor Name Account Type Relation to Date of Phone Billing Patient Address Sagrario Buckley Personal/Family 1970 [phone] [address] (Home) [phone] [place], [place] (Work) [phone] documented as of this encounter
--- OUTSIDE RECORDS SUMMARY | 2019-06-01 09:48 | XMS REPORT | Continuity of Care Document ---
:1970 External Reference #:[id number] Author Name Shawna Brian M.D. Address [address] [place] [address] Care Team Providers Name Role Phone Shawna Brian M.D. 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 Onset: 04/10/2019 Social History Type Date Description Comments Sex Unknown Tobacco Use Start: Unknown End: Former Cigarette Smoker 1ppd since 18 quit 1 Pack Daily 47 Smoking Status Reviewed: 04/10/19 Former Cigarette Smoker 1ppd since 17 quit 1 Pack Daily 47 ETOH Use Denies alcohol use Tobacco Use Start: Unknown End: Patient is a former Unknown smoker Exercise Exercises regularly Journey 3x week Type/Frequency Allergies, Adverse Reactions, Alerts Active Allergies Reaction Severity Comments Date Scopolamine breathing issues, nausea 04/10/2019 Medications Active Medications SIG Qnty Indications Ordering Provider Date Mirena (52 MG) 2015 Shawna Brian M.D. 04/10/2019 20mcg/24HR IUD Immunizations CPT Code Status Date Vaccine Lot # [id number] Given 04/10/2019 Influenza vac quadrivalent preservative free 6 [id number] months and up Vital Signs Date Vital Result Comment 04/10/2019 4:09pm BP Systolic 108 mmHg BP Diastolic 78 mmHg Heart Rate 64 /min Body Temperature 97.9 F Respiratory Rate 16 /min Height 65 inches 5'5" Weight 210.00 lb BMI (Body Mass Index) 34.9 kg/m2 07/27/1999 10:56am BP Systolic 118 mmHg BP Diastolic 68 mmHg Body Temperature 97.0 F Weight 157.00 lb Results Test Date Facility Test Result H/L Range Note Laboratory test 04/15/2019 [facility] Sedimentation Rate 16 mm finding (607)- - Ua - Micro ([facility]) 04/15/2019 [facility] Appearance clear (607)- - Color yellow Glucose, Urine ([facility]/CTX) neg Bilirubin neg Ketones neg SP Grav <1.005 Blood neg PH 5.0 Protein neg Urobil 0.2 Nitrite neg Leukocytes (Fma/[facility]/Centrex) trace Hyaline - /Lpf Granular - /Lpf WBC (Fma,[facility]rex) 2-4 RBC 0-1 Mucus (Fma/CBC/[facility]rex) - /Lpf Epith large /Lpf Bacteria trace /Hpf Amorphous (Fma/CMC/Centrex) - /Lpf Crystals, Fluid (Fma/CMC/CTX) - Z#Comments not clean catch Laboratory test finding 04/15/2019 [facility]ma) TSH <pending> 0.5 -5.0 Ferritin <pending> 6-115 Creatine Kinase <pending> 38-174 B12 <pending> 230-1050 Ellen Panel--LD ([facility]) 04/15/2019 [facility] Rheumatoid Factor <pending> Laboratory test finding 04/15/2019 [facility] [place] Reactive Protein <pending> Procedures Date Code Description Status 06/05/2017 09934659 Colonoscopy Completed 06/05/2016 11721861 Mammogram Completed Medical Devices Description No Information Available Encounters Type Date Location Provider Dx Diagnosis Office Visit 04/10/2019 [facility] [place] Office Ernie Wilde23 Encounter for 4:00p MStas immunization Z00.00 Encntr for general adult medical exam w/o abnormal findings M79.10 Myalgia, unspecified site G25.81 Restless legs syndrome M25.561 Pain in right knee M25.511 Pain in right shoulder R20.2 Paresthesia of skin R82.998 Other abnormal findings in urine Assessments Date Code Description Provider 04/15/2019 M79.10 Myalgia, unspecified site Shawna Brian M.D. 04/15/2019 Z00.00 Encntr for general adult medical exam w/o Shawna Brian M.D. abnormal findings 04/15/2019 G25.81 Restless legs syndrome Shawna Brian M.D. 04/15/2019 R82.998 Other abnormal findings in urine Shawna Brian M.D. 04/10/2019 Z23 Encounter for immunization Shawna Brian M.D. 04/10/2019 Z00.00 Encounter for general adult medical examination Shawna Brian M.D. without abnormal findings 04/10/2019 M79.10 Myalgia, unspecified site Shawna Brian M.D. 04/10/2019 G25.81 Restless legs syndrome hSawna Brian M.D. 04/10/2019 M25.561 Pain in right knee Shawna Brian M.D. 04/10/2019 M25.511 Pain in right shoulder Shawna Brian M.D. 04/10/2019 R20.2 Paresthesia of skin Shawna Brian M.D. 04/10/2019 R82.998 Other abnormal findings in urine Shawna Brian M.D. Plan of Treatment Future Appointment(s):06/12/2019 3:00 pm - Shawna Brian M.D. at [facility] Wwjswi5804/10/2019 - Shawna Brian M.D.Z23 Encounter for immunizationComments: Recommend annual influenza nsarmejekorO66.00 Encounter for general adult medical examination without abnormal findingsComments:Encourage an active and healthy lifestyle with proper eating habits including fruits, vegetables, 6-8 glasses of water a day and monitoring portion size. Recommend 30 minutes of daily physical activityincluding walking, aerobic exercise, sports, yoga or dance. Any activity is better than no activity.Recommend routine eye and dental exams. Next physical is due in 1-2 years.Follow up:fasting 2 moM79.10 Myalgia, unspecified siteComments:check labs , discussed medication like amitriptyline, gabapentin, jumxsjoykrT32.81 Restless legs syndromeComments:start magnesium 250mg daily and a ydxqdqnY41.561 Pain in right kneeM25.511 Pain in right yiskplzgM05.2 Paresthesia of skinR82.998 Other abnormal findings in urineAllNew Medication:Mirena (52 MG) 20 mcg/24HR - 2015Comments:Medication Management Patient Understands medications she's taking? Yes No Are there Barriers to Adherence? Yes No Has the patient been asked about herbal supplements and therapies, and OTC meds? Yes No Functional Status Description No Information Available Mental Status Description No Information Available Referrals Description No Information Available
--- OUTSIDE RECORDS SUMMARY | 2019-06-01 09:48 | XMS REPORT | Summary of Care ---
:1970 Author Organization [facility] Address [address] [place] [address] Care Team Providers Name Role Phone Shawna Brian MD Primary Care Provider Reason for Visit Reason Comments Knee Pain right Encounter Details Date Type Department Care Team Description 05/15/2019 Office Visit [facility] - Pebbles Malone, Acute medial meniscus [place] [facility] tear of right knee, Therapy [address] subsequent encounter [address] [place] [address] (Primary Dx) [address] [phone] [place] [phone] Allergies Active Allergy Reactions Severity Noted Date Comments Varenicline Other 07/04/2014 Nightmares Scopolamine 07/18/2007 documented as of this encounter (statuses as of 05/15/2019) Medications Medication Sig Dispensed Refills Start Date [...] as of this encounter (statuses as of 05/15/2019) Active Problems Problem Noted Date Pain of right upper extremity 03/17/2017 Overview: Added automatically from request for surgery [id number] IUD (intrauterine device) in place 03/02/2016 Overview: [...] as of this encounter (statuses as of 05/15/2019) Immunizations Name Administration Dates Next Due Influenza [...] encounter Progress Notes Pebbles Malone, PT - 05/15/2019 2:30 PM EST [facility] Treatment Note Outpatient Physical Therapy Services [facility] [address] [place] [phone] Treatment Number: 3 Referring Physician: Lizabeth Perez Primary Diagnosis: ICD-9-CM ICD-10-CM 1. Acute medial meniscus tear of right knee, subsequent encounter V58.89 S83.241D 836.0 Plan of Care Expiration Date: Time In: 229 Time Out: 299 Total Session Minutes: 30 Pain at Start of Care: 2 Pain at End of Care: 06/14 Subjective Comments: Not sure if much change, a little relief with taking chondroitin. Hamstring still really bother her with sitting and rising from a chair. Interventions: Therapeutic Exercises (78113) Patient Education/Home Exercise Program: see exercises below Number of Exercises?: 5 Total Minutes (all Therapeutic Exercise): 25 Exercise [...] Exercise: Strengthening Location/Body Area: Knee Sets/Reps: 15 Manual Therapy (07439) Taping: kinesiotape Taping Details: Y strip and I strip Modalities Modalities Needed?: Ultrasound Ultrasound (25071) Reason for Use: promote healing, cavitation Body Area: medial knee joint Frequency: 1.0 MHz Frequency Description: Pulsed 50% Intensity: .5wcm2 Total Minutes: 5 minutes Assessment: Patient demonstrates no tenderness to palpation with hamstrings, but painful stretch, she may have tendinosis from over exercising back in the fall. When manual external rotation force wasplaced through R knee during a deep squat she was pain free, as was external rotation force with femur during squat. This indicates dysfunction of the hamstrings causing excessive forces through medialknee compartment. Patient also reports ongoing difficulty in squatting, pivoting, positional changes in closed kinetic chain. Skilled Physical Therapy services are required to address ongoing functional and objective limitations/impairments including decreased LE strength/stability and proproception. Plan for Next Visit: Resume SLS, more manual adjusting to painful positions for motor control work Total UNTIMED Code Treatment Minutes: Total TIMED Code Treatment Minutes: 30 Total Treatment Minutes: 30 Author: Pebbles Malone, PT 05/15/2019 14:56 documented in this encounter Plan of Treatment Date Type Specialty Care Team Description 05/22/2019 Office Visit Orthopedics Lizabeth Perez RPA-C [address] [facility] [place] [address] [place] [address] 05/22/2019 Office Visit Physical Therapy Pebbles Malone, PT [address] [place] [address] 05/27/2019 Office Visit Physical Therapy Pebbles Malone, PT [address] [place] [address] 06/03/2019 Office Visit Physical Therapy Pebbles Malone, PT [address] [place] [address] Health Maintenance Due Date Last Done Comments [...] Current Smoker Lifestyle Tobacco use disorder Miriam Medeiors MD Note: Smoking Cessation Plan Discussed smoking [...] is an individualized lifestyle goal for Sagrario E[place] Buckley: Please maintain a regular sleep schedule. [...] of this encounter Implants Implanted Type Area Char Filter Tank Tender Head Device Shelf Model / Identifier Expiration Serial / Lot Date Hand/Wrist Internal Brace Ligament Augmentation Repair Right: ARTHREX [id number] / Implanted: Qty: 1 on 04/14/2017 by Delilah Dash MD at [facility] Hand / [id number] documented as of this encounter Results Not on filedocumented in this encounter Visit Diagnoses Diagnosis Acute medial meniscus tear of right knee, subsequent encounter documented in this encounter Insurance Payer Benefit Plan / Subscriber ID Effective Dates Phone Address Type Group [employer] xxxxxxxxxxxx 2016-Present [employer] Guarant[employer] Name Account Type Relation to Date of Phone Billing Patient Address Sagrario Buckley Personal/Family 1970 [phone] [address] (Home) [phone] [place], [place] (Work) [id number] documented as of this encounter
--- OUTSIDE RECORDS SUMMARY | 2019-06-01 09:48 | XMS REPORT | Summary of Care ---
:1970 Author Organization [facility] Address [address] [address] Care Team Providers Name Role Phone Shawna Brian MD Primary Care Provider Reason for Visit Reason Comments Knee Pain right Encounter Details Date Type Department Care Team Description 05/08/2019 Office Visit [facility] - Pebbles Malone, Acute medial meniscus [place] [facility] tear of right knee, Therapy [address] subsequent encounter [address] [place] [address] (Primary Dx) [address] [phone] [place] [phone] Allergies Active Allergy Reactions Severity Noted Date Comments Varenicline Other 07/04/2014 Nightmares Scopolamine 07/18/2007 documented as of this encounter (statuses as of 05/08/2019) Medications Medication Sig Dispensed Refills Start Date [...] as of this encounter (statuses as of 05/08/2019) Active Problems Problem Noted Date Pain of right upper extremity 03/17/2017 Overview: Added automatically from request for surgery [id number] IUD (intrauterine device) in place 03/02/2016 Overview: [...] as of this encounter (statuses as of 05/08/2019) Immunizations Name Administration Dates Next Due Depo [...] encounter Progress Notes Pebbles Malone, PT - 05/08/2019 2:30 PM EST [facility] Treatment Note Outpatient Physical Therapy [facility] [address] [place] [phone] Treatment Number: 2 Referring Physician: Lizabeth Perez Primary Diagnosis: ICD-9-CM ICD-10-CM 1. Acute medial meniscus tear of right knee, subsequent encounter V58.89 S83.241D 836.0 Plan of Care Expiration Date: Time In: 229 Time Out: 299 Total Session Minutes: 30 Pain at Start of Care: 2 Pain at End of Care: 06/14 Subjective Comments: Doing better, more good days, but still bad days and pain with pivoting Interventions: Therapeutic Exercises (70406) Patient Education/Home Exercise Program: see exercises below Number of Exercises?: 5 Total Minutes (all Therapeutic Exercise): 25 Exercise #1 Exercise Name: SLR- forward, lateral Reason for Exercise: Muscle Performance Location/Body Area: Knee Sets/Reps: 20x Exercise #2 Exercise Name: Hamstring stretch with strap Reason for Exercise: Flexibility Location/Body Area: Ankle Sets/Reps: 60 sec Exercise #3 Exercise Name: SLS on airex Reason for Exercise: Balance Location/Body Area: Knee Sets/Reps: 3 x 30 sec Exercise #4 Exercise Name: bridge Reason for Exercise: Muscle Performance Location/Body Area: Knee Sets/Reps: 15x Manual Therapy (67888) Taping: kinesiotape Taping Details: Y strip and I strip Modalities Modalities Needed?: Ultrasound Ultrasound (79486) Reason for Use: promote healing, cavitation Body Area: medial knee joint Frequency: 1.0 MHz Frequency Description: Pulsed 50% Intensity: .5wcm2 Total Minutes: 5 minutes Assessment: Patient demonstrates improved stability, was able to tolerate SLS with out pain. Responds well to taping Patient also reports ongoing difficulty in pivoting, regular exercise. Skilled Physical Therapy services are required to address ongoing functional and objective limitations/impairments including decreased R LE strength/stability. Plan for Next Visit: Add band with bridge and clams Total UNTIMED Code Treatment Minutes: Total TIMED Code Treatment Minutes: 30 Total Treatment Minutes: 30 Author: Pebbles Malone, PT 05/08/2019 15:04 documented in this encounter Plan of Treatment Date Type Specialty Care Team Description 05/15/2019 Office Visit Physical Therapy Pebbles Malone, PT [address] [place] [address] [phone] 05/21/2019 Office Visit Orthopedics Lizabeth Perez, STEPHANIE [address] [facility] [place] [address] [phone] 05/22/2019 Office Visit Physical Therapy Pebbles Malone, PT [address] [place] [address] 05/27/2019 Office Visit Physical Therapy Pebbles Malone, PT [address] [place] [address] 06/03/2019 Office Visit Physical Therapy Pebbles Malone, PT [address] [place] [address] Health Maintenance Due Date Last [...] of this encounter Implants Implanted Type Area Direct Support Professional Device Shelf Model / Identifier Expiration Serial / Lot Date Hand/Wrist Internal Brace Ligament Augmentation Repair Right: AR[employer]REX [id number]-[id number] / Implanted: Qty: 1 on 04/14/2017 by Delilah Dash MD at [facility] Hand / [id number] documented as of this encounter Results Not [...] of Phone Billing Patient Address Sagrario Buckley [place] Personal/Family 1970 [phone] [address] (Home) [phone] [place], [place] (Work) [address] documented as of this encounter
--- OUTSIDE RECORDS SUMMARY | 2019-06-01 09:48 | XMS REPORT | Continuity of Care Document ---
:1970 External Reference #:[id number] Author Name Shawna Brian M.D. Address [address] [place] [address] Care Team Providers Name Role Phone Shawna Brian M.D. 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 Problems Active Problems Provider Date Restless [...] CPT Code Status Date Vaccine Lot # [id number] Given 04/10/2019 Influenza vac quadrivalent preservative free 6 [id number] months and up Vital Signs Date Vital Result Comment 04/10/2019 4:09pm BP Systolic 108 mmHg BP Diastolic 78 mmHg Heart Rate 64 /min Body Temperature 97.9 F Respiratory Rate 16 /min Height 65 inches 5'5" Weight 210.00 lb BMI (Body Mass Index) 34.9 kg/m2 07/27/1999 10:56am BP Systolic 118 mmHg BP Diastolic 68 mmHg Body Temperature 97.0 F Weight 157.00 lb Results Description No Information Available Procedures Date Code Description Status 06/05/2017 64131064 Colonoscopy Completed 06/05/2016 74846496 Mammogram Completed Medical Devices Description No Information Available Encounters Description No Information Available Assessments Date Code Description Provider 04/10/2019 Z23 Encounter for immunization Shawna Brian M.D. 04/10/2019 Z00.00 Encounter for general adult medical examination Shawna Brian M.D. without abnormal findings 04/10/2019 M79.10 Myalgia, unspecified site Shawna Brian M.D. 04/10/2019 G25.81 Restless legs syndrome Shawna Brian M.D. 04/10/2019 M25.561 Pain in right knee Shawna Brian M.D. 04/10/2019 M25.511 Pain in right shoulder Shawna Brian M.D. 04/10/2019 R20.2 Paresthesia of skin Shawna Brian M.D. Plan of Treatment Future Appointment(s):06/12/2019 3:00 pm - Shawna Brian M.D. [place] [facility] [place] Vzdqth3704/15/2019 9:30 am - Shawna Brian M.D. [place] [facility] Zureoc4604/10/2019 - Shawna Brian M.D.Z23 Encounter for immunizationComments:Recommend annual influenza sesvdevmdzyG61.00 Encounter for general adult medical examination without abnormal findingsNew Labs:CBC Electronic-ALL Lab [facility], Ordered: 04/10Comp Metabolic-ALL Lab [facility], Ordered: 04/10/19Lipid Panel-[facility], Ordered: 04/10/19Ua - Non Micro (Fma), Ordered: 04/10/19TSH (Fma/[facility]/ [facility]), Ordered: 04/10/19Comments:Encourage an active and healthy lifestyle with proper eating habits including fruits, vegetables, 6-8 glasses of water a day and monitoring portion size. Recommend 30 minutes of daily physical activityincluding walking, aerobic exercise, sports, yoga or dance. Any activity is better than no activity.Recommend routine eye and dental exams. Next physical is due in 1-2 years.Follow up:fasting 2 moM79.10 Myalgia, unspecified siteNew Labs:Tickborne Panel Fma, Ordered: 04/10/19Ana Panel--LD ( [facility]), Ordered: 04/10/19CRP, Ordered: 04/10/19Creatine Kin, Total (F/C/CTX), Ordered: 04/10/19Sedimentation Rate, Ordered: 04/10/19B12 (Fma/[facility]/Centrex), Ordered: 04/10/19Comments:check labs , discussed medication like amitriptyline , gabapentin, bmifkazfpeQ83.81 Restless legs syndromeNew Labs:Ferritin (Fma/[facility]/ [facility]), Ordered: 04/10/19Comments:start magnesium 250mg daily and a uxoafqeT37.561 Pain in right kneeM25.511 Pain in right ftwwrgakI26.2 Paresthesia of skinAllNew Medication:Mirena (52 MG) 20 mcg/24HR - 2015Comments: Medication Management Patient Understands medications she's taking? Yes No Are there Barriers to Adherence? Yes No Has the patient been asked about herbal supplements and therapies, and OTC meds? Yes No Functional Status Description No Information Available Mental Status Description No Information Available Referrals Description No Information Available
--- OUTSIDE RECORDS SUMMARY | 2019-06-01 09:48 | XMS REPORT | Summary of Care ---
:1970 Author Organization [facility] Address [address] [address] Care Team Providers Name Role Phone Shawna Brian MD Primary Care Provider Reason for Visit Reason Comments Knee Pain right Refer to Department Only (Routine) Status Reason Specialty Diagnoses / Referred By Referred To Procedures Contact Contact Authorized Physical Therapy Diagnoses Acute medial meniscus tear of right knee, subsequent encounter Lizabeth Perez, [facility] - [address] [place] [address] [address] Phone: [place], [place] [phone] [address] Fax: Encounter Details Date Type Department Care Team Description 04/24/2019 Office Visit [facility] - Pebbles Malone, Acute medial meniscus [place] [facility] tear of right knee, Therapy [address] [facility] subsequent encounter [address] [place] [address] (Primary Dx) [address] [phone] [place] [address] [phone] Allergies Active Allergy Reactions Severity Noted Date Comments Varenicline Other 07/04/2014 Nightmares Scopolamine 07/18/2007 documented as of this encounter (statuses as of 04/24/2019) Medications Medication Sig Dispensed Refills Start Date [...] as of this encounter (statuses as of 04/24/2019) Active Problems Problem Noted Date Pain of right upper extremity 03/17/2017 Overview: Added automatically from request for surgery [id number] IUD (intrauterine device) in place 03/02/2016 Overview: [...] as of this encounter (statuses as of 04/24/2019) Immunizations Name Administration Dates Next Due Depo [...] encounter Progress Notes Pebbles Malone, PT - 04/24/2019 3:00 PM EST [facility] Initial Evaluation Outpatient Physical [facility] [address] [place] [id number] Patient: Sagrario Buckley : 1970 Date of Service: 04/24/2019 Referring Physician: Lizabeth Perez Primary Diagnosis: ICD-9-CM ICD-10-CM 1. Acute medial meniscus tear of right knee, subsequent encounter V58.89 S83.241D 836.0 Time In: 0300 Time Out: 0346 Subjective: She is a 49-y.o.-year-old female who presents for outpatient physical therapy with a chief complaint of acute R medial knee pain after starting a work out program at [employer]. Pt reports starting challenging work out program that started to bother her knee and both shoulders. She then was working outside at home and fell landing her R knee into a wall. MRI shows meniscal tears. She has been unable to work out for 3 weeks, pain with stairs, adduction force. 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 This requires lifting a 6 year old often and being on the floor often. Prior Functional Status: Not limited, working out at [employer] Current Functional Status: Not able to work out, deals with pain for her job Abuse/Neglect Screening Are you being threatened or hurt by anyone? : No FOTO Data FOTO Intake Completed: Yes Intake FS Score: 26 Predicted FS Score: 51 Objective: Past Medical History: Diagnosis Date Abnormal glandular Papanicolaou smear of cervix 06/29/2006 Acute sinusitis, unspecified 06/29/2006 Acute sinusitis, unspecified 10/18/2006 Depressive disorder, not elsewhere classified 12/04/2006 Disc disorder of lumbar region Dr Jose, orthopedist in [place]. Foot fracture Ganglion cyst Irritable bowel syndrome 10/18/2006 Irritable bowel syndrome 10/18/2006 Personal history of contraception, presenting hazards to health Tobacco use disorder 10/18/2006 Wrist fracture Past Surgical History: Procedure Laterality Date SECTION NEC IN APPENDECTOMY IN HAND/FINGER SURGERY UNLISTED Right 04/14/2017 Right index finger MP radial collateral ligament reconstruction and mass excision IN TRANSPLANT FOREARM/WRIST TENDON Right 04/14/2017 Procedure: Rt Index finger MP RCL reconstrruction and excision of mass; Surgeon: Delilah Barbour MD; Location: [facility] MAIN OR Current Outpatient Medications: acetaminophen (TYLENOL) 650 MG Oral Tab CR, Take 1 Tab by mouth EVERY SIX HOURS., Disp: 36 Tab, Rfl: 0 ibuprofen (MOTRIN) 800 MG Oral Tab, Take 1 Tab by mouth EVERY SIX HOURS NEEDED for Pain.,Disp: 36 Tab, Rfl: 0 Levonorgestrel (MIRENA, 52 MG,) 20 MCG/24HR Intrauterine IUD, by Intrauterine route. Placed 12/25/15, Disp: , Rfl: metroNIDAZOLE (METROGEL VAGINAL) 0.75 % Vaginal Gel, insert 1 applicator per vagina two times of week for suppressive therapy, Disp: , Rfl: nicotine transdermal patch-daily (NICODERM) 21 MG/24HR Transdermal PATCH 24 HR, Place 1 Patch onto skin DAILY., Disp: 14 Patch, Rfl: 0 nicotine transdermal patch-daily (NICOTINE STEP 2) 14 MG/24HR Transdermal PATCH 24 HR, Place1 Patch onto skin DAILY., Disp: 30 Patch, Rfl: 0 Allergies Allergen Reactions Chantix [Varenicline] Other Nightmares Scopolamine Palpation: + medial joint line R AROM: Initial Eval Right Knee Left Knee Progress Note Right Knee Left Knee Extension 0 degrees 0 degrees Extension Flexion 125 degrees 125 degrees Flexion PROM: Initial Eval Right Knee Left Knee Progress Note Right Knee Left Knee Extension 0 degrees 0 degrees Extension Flexion 125 degrees 125 degrees Flexion Strength:* denotes pain Initial Eval Right Knee Left Knee Progress Note Right Knee Left Knee Extension 5/5 5/5 Extension Flexion 5/5 4*/5 Flexion Hip Abduction 4/5 4/5 Hip Abduction Hip extension 5/5 4*/5 Hip Extension Balance: Condition Right Leg Left Leg Stable Surface, Eyes Open 20 seconds 30 seconds Functional Movement Testing: Double Leg Squat: Dysfunctional, painful Special Tests: Varus: neg Valgus: neg Suad: positive Thessaly: neg Anterior Drawer: neg Posterior Drawer: neg Standing posture: WNL Gait: WNL Plan of Care Plan of Care Start Date: 04/24/19 Plan of Care Expiration Date: 07/25/19 Prior Function Comment: Not limited, working out at [employer] Current Function Comment: Not able to work out, deals with pain for her job Rehabilitative Prognosis: Excellent Planned Intervention(s): PT Eval Low Complexity (13575);Gait Training (78140); Neuro Re-Education (79280);Therapeutic Exercise (Timed) (03995);Ultrasound ( Timed) (99997);Manual Therapy (Timed) (71778) Frequency of Treatments: 1-2 times a week Duration of Treatments: 3 months History Components: Low (No personal factors and/or comorbidities) Examination of Body Systems/Components: Low (Addressing 1-2 elements)(Decreased glute and hamstring strength, impaired LE balance) Clinical Presentation: Stable - unchanging or predictable (Low) Clinical Decision Making (complexity): Low Treatment Number: 1 Total Time of Evaluation: 46 Outcome Tools Used: TO- Assessment: Pt presents with c/c acute R medial knee pain. Pt currently demonstrates painful resisted testing of glutes, hamstrings and adductors; weak glutes. These impairments are resulting in functional limitations including difficulty with prolonged standing, squatting, kneeling, lifting needed for her regular exercise program and work duties. Signs and symptoms consistent with internal derangement of R knee, motor control dysfunction of the hip. Pt would therefore benefit from skilled physicaltherapy in order to restore pain free mobility and LE strength/stability. Was Physical Therapy treatment performed at this visit? Yes: Interventions: TO Data FOTO Intake Completed: Yes Intake FS Score: 26 Predicted FS Score: 51 Therapeutic Exercises (47466) Patient Education/Home Exercise Program: see exercises below Number of Exercises?: 3 Total Minutes (all Therapeutic Exercise): 10 Exercise #1 Exercise Name: SLR- forward, lateral Reason for Exercise: Muscle Performance Location/Body Area: Knee Sets/Reps: 20x Exercise #2 Exercise Name: Hamstring stretch with strap Reason for Exercise: Flexibility Location/Body Area: Ankle Sets/Reps: 60 sec Manual Therapy (21187) Taping: kinesiotape Taping Details: Y strip and I strip Total Minutes (All Manual Therapy): 5 Modalities Modalities Needed?: Ultrasound Ultrasound (92223) Reason for Use: promote healing, cavitation Body Area: medial knee joint Frequency: 1.0 MHz Frequency Description: Pulsed 50% Intensity: .5wcm2 Total Minutes: 5 minutes Plan for Next Visit: Bike, calf stretch on wedge, SLS, bridge Evaluation Complexity Assessment: History Components: Low (No personal factors and/or comorbidities) Examination of Body Systems/Components: Low (Addressing 1-2 elements)(Decreased glute and hamstring strength, impaired LE balance) Clinical Presentation: Stable - unchanging or predictable (Low) Clinical Decision Making (complexity): Low Treatment Number: 1 Total Time of Evaluation: 46 Total Number of Timed Code Treatment Minutes: 20 Author: Pebbles Malone PT 04/24/2019 15:48 documented in this encounter Plan of Treatment Date Type Specialty Care Team Description 05/08/2019 Office Visit Physical Therapy Pebbles Malone, PT [address] [place], [place] [phone] 05/15/2019 Office Visit Physical Therapy Pebbles Malone, PT [address] [place] [address] 05/21/2019 Office Visit Orthopedics Lizabeth Perez, RPA-C [address] [facility] [address] [place], [place] [phone] 05/22/2019 Office Visit Physical Therapy Pebbles Malone, PT [address] [place] [phone] 05/27/2019 Office Visit Physical Therapy Pebbles Malone, PT [address] [place] [address] 06/03/2019 Office Visit Physical Therapy Pebbles Malone, PT [address] [place] [address] Health Maintenance Due Date Last [...] an individualized treatment (depression) goal for Sagrario Ely Buckley: Displayed above is your goal for [...] is an individualized self-management goal for Sagrario Buckley: Please take all prescribed medications as [...] of this encounter Implants Implanted Type Area Roll Finisher Device Shelf Model / Identifier Expiration Serial / Lot Date Hand/Wrist Internal Brace Ligament Augmentation Repair Right: [employer] [id number] / Implanted: Qty: 1 on 04/14/2017 by Delilah Barboru MD at [facility] Hand / [id number] documented as of this encounter Results Not [...] Billing Patient Address Sagrario Buckley Personal/Family 1970 [phone] [address] (Home) [phone] [place], [place] (Work) [id number] documented as of this encounter
--- NOTE | 2019-06-01 10:12 | UC ---
Lower Extremity/Ankle HPI - HPI Summary HPI Summary: R ankle pain after rolling her ankle last night. She is concerned it is broken , unable to bear weight. - History of Current Complaint Chief Complaint: UCLowerExtremity Stated Complaint: RT ANKLE INJURY Time Seen by Provider: 06/01/19 10:11 Hx Obtained From: Patient Hx Last Menstrual Period: IUD Aggravating Factor(s): Ambulation Alleviating Factor(s): Rest Able to Bear Weight: No - Allergies/Home Medications Allergies/Adverse Reactions: Allergies Allergy/AdvReac Type Severity Reaction Status Date / Time scopolamine Allergy See Comment Verified 06/01/19 10:04 PMH/Surg Hx/FS Hx/Imm Hx - Additional Past Medical History Additional PMH: no chronic illness Previously Healthy: Yes - Surgical History Surgical History: Yes Surgery Procedure, Year, and Place: 1997 APPENDECTOMY, [facility] [place]. 1999 , [facility] [place]. 12/16/2015 [facility] - Family History Known Family History: Positive: None Family History: NON CONTRIBUTORY - Social History Alcohol Use: Occasionally Alcohol Amount: 10 WINE OR BEER PER MONTH Substance Use Type: None Smoking Status (MU): Former Smoker Type: Cigarettes Amount Used/How Often: 1/2 PPD FOR 30 YEARS Length of Time of Smoking/Using Tobacco: 20 years Have You Smoked in the Last Year: Yes Household Exposure Type: Cigarettes Review of Systems All Other Systems Reviewed And Are Negative: Yes Constitutional: Negative: Fever Skin: Negative: Bruising Neurovascular: Negative: Decreased Sensation, Decreased Pulses Musculoskeletal: Positive: Arthralgia - R ANKLE, Decreased ROM - R ANKLE, Edema - E ANKLE Neurological: Negative: Paresthesia, Numbness Physical Exam Triage Information Reviewed: Yes Appearance: Well-Appearing Cardiovascular: Positive: Pulses Normal - pedal right Musculoskeletal: Positive: Strength Intact - R FOOT, ROM Limited @ - R ANKLE, Edema @ - R LATERAL ANKLE Neurological: Positive: Alert Skin: Negative: Other - NO BRUISING Diagnostics - Radiology No standard instances Radiology Interpretation Completed By: Radiologist Summary of Radiographic Findings: IMPRESSION: SOFT TISSUE SWELLING. THERE ARE SMALL BONY DENSITIES ADJACENT TO THE TIPS OF THE MEDIAL AND LATERAL MALLEOLI LIKELY CONSISTENT WITH SMALL FRACTURE FRAGMENTS AGE-INDETERMINATE ALTHOUGH LIKELY CHRONIC. Lower Extremity Course/Dx - Course Course Of Treatment: R ANKLE PAIN W/ SUSPECTed new fracture. Will put in CAM boot and she should f/ u w/ Ortho. NO neuro deficits on exam. she will take ibu at home. - Differential Dx/Diagnosis Differential Diagnosis/HQI/PQRI: Bursitis, Fracture (Closed), Fracture (Open), Sprain, Strain Provider Diagnosis: Ankle pain Discharge ED - Sign-Out/Discharge Documenting (check all that apply): Patient Departure All imaging exams completed and their final reports reviewed: Yes - Discharge Plan Condition: Good Disposition: HOME Patient Education Materials: Swollen Joint (ED) Referrals: Flavia London PA [Physician Weed Controller] - Additional Instructions: Please follow up with Orthopedics as they may decide to do further imaging. - Billing Disposition and Condition Condition: GOOD Disposition: Home - Attestation Statements Provider Attestation: Per institutional requirements, I have reviewed the chart, however, I was not consulted specifically or made aware of this patient by the midlevel provider. I did not personally evaluate, interact with , or disposition this patient.
[2019-06-01 10:17] VITALS: BP 121/81
== END 2019-06-01 11:00 | disposition home or self-care (01) ==
LOC: UCCORT 09:39
DX: M25.571 Pain in right ankle and joints of right foot (principal); M79.89 Other specified soft tissue disorders; Z88.8 Allergy status to other drugs, medicaments and biological substances; Z87.891 Personal history of nicotine dependence
CPT/HCPCS: 99212; G0463